=== PATIENT | female | born 1960 | race Caucasian/White ===

== ENCOUNTER → 2018-07-02 | Outpatient (CLI) | payer OTHER ==
--- NOTE | 2018-07-03 08:10 | RADIOLOGY IMAGING REPORT ---
FAC[place] [facility] [place] NAME: GRANT BAUTISTA : [id number] MR: [id number] V: [id number] EXAM DATE: [id number] ORDERING PHYSICIAN: TAMANNA OTTO TECHNOLOGIST: Mis Patiño PROCEDURE:BILATERAL DIGITAL SCREENING MAMMOGRAM WITH CAD ASSISTED INTERPRETATION & 3D TOMOSYNTHESIS COMPARISON:Prior mammograms 08/05/16, 09/27/11. INDICATIONS:SCREENING FINDINGS: Moderately dense heterogeneous fibroglandular tissue is seen throughout the breasts. The parenchymal pattern has remained stable allowing for difference in mammographic technique & patient positioning. There is no evidence of malignant appearing mass, malignant appearing calcifications or other secondary sign of malignancy in either breast. DIAGNOSTIC CATEGORY 1--NEGATIVE. RECOMMENDATIONS: ROUTINE MAMMOGRAM AND CLINICAL EVALUATION. IMPRESSION: BIRADS 1: Negative. No significant abnormality is seen. Dictated by: Taylor Brown M.D. on 07/02/2018 at 15:23 Transcribed by: COURTNEY on 07/02/2018 at 15:36 Approved by: Taylor Brown M.D. on 07/03/2018 at 8:09 [facility]
== END ==
LOC: MAMO 11:12
PROVIDERS: ATTEND Internal Medicine
DX: Z12.31 Encounter for screening mammogram for malignant neoplasm of breast (principal)
CPT/HCPCS: 77063; 77067

== ENCOUNTER → 2018-07-11 | Outpatient (REF) | DX: Z02.9 Encounter for administrative examinations, unspecified (principal) ==

== ENCOUNTER → 2019-02-19 | Outpatient (CLI) | payer OTHER ==
[~2019-02-19] MED LIST: MET60GMPT TOP
== END ==
LOC: LAB 13:03
PROVIDERS: ATTEND Emergency Medicine
DX: R73.09 Other abnormal glucose (principal)
CPT/HCPCS: 36415; 83036